=== PATIENT | female | born 1995 | race Caucasian/White ===

== ENCOUNTER 2017-08-06 15:53 | Emergency (ER) | payer BC ==
[2017-08-06 18:35] LABS: ABS Basophils 0.1 10^3/ul (0-0.2); ABS Eosinophils 0 10^3/ul (0-0.6); ABS Lymphocytes 2.2 10^3/ul (1.0-4.8); ABS Monocytes 0.3 10^3/ul (0-0.8); ABS Neutrophils 5.6 10^3/ul (1.5-7.7); ABS Nucleated RBC 0 10^3/ul; Eosinophil % 0.2 % (0-6); Hematocrit 40 % (35-47); Hemoglobin 13.7 g/dl (12.0-16.0); Lymphocyte % 26.8 % (25-47); Mean Corpuscular HGB Conc 35 g/dl (31-36); Mean Corpuscular Hemoglobin 30 pg (27-31); Mean Corpuscular Volume 88 fL (80-97); Mean Platelet Volume 9.6 um3 (7.4-10.4); Nucleated Red Blood Cells % 0; Platelet Count 265 10^3/ul (150-450); Red Blood Count 4.51 10^6/ul (4.00-5.40); Red Cell Distribution Width 15 % (10.5-15); White Blood Count 8.2 10^3/ul (3.5-10.8)
[2017-08-06 18:53] LABS: EGFR Non-African American 97.5 (>60)
[2017-08-06] MEDS ORDERED: Ondansetron ODT TAB* 4 MG PO ONE (19:02)
[2017-08-06] MEDS ORDERED: NS 0.9% 1000 ML* 1,000 ML IV ONE (19:02)
--- NOTE | 2017-08-06 19:09 | ED ---
Abdominal Pain/Female - HPI Summary HPI Summary: Complains of diffuse remittent abdominal pain worse on left side, constipation 1.5 weeks with one bowel movement on Wednesday, fatigue, nausea. Also complains of chronic productive cough 3 months. Has attempted 2 enemas with no improvement in symptoms. Last flatulence yesterday. Denies fever, sore throat, SOB, CP, V/D, urine symptoms, vaginal symptoms. History of Crohn's, with occasional hx of constipation starting this year. Denies history of intestinal obstruction. Abdominal/pelvic surgical history is none. Nonsmoker. - History of Current Complaint Chief Complaint: EDGeneral Stated Complaint: CONSTIPATION/NAUSEA Time Seen by Provider: 08/06/17 18:34 Hx Obtained From: Patient Onset/Duration: Gradual Onset Timing: Intermittent Episode Lasting Pain Intensity: 0 Location: Diffuse Radiates: No Character: Cramping Aggravating Factor(s): Nothing Alleviating Factor(s): Nothing Associated Signs and Symptoms: Positive: Constipation, Nausea Allergies/Adverse Reactions: Allergies Allergy/AdvReac Type Severity Reaction Status Date / Time No Known Allergies Allergy Unverified 08/06/17 16:03 PMH/Surg Hx/FS Hx/Imm Hx Endocrine/Hematology History: Denies: Hx Anticoagulant Therapy Cardiovascular History: Denies: Hx Cardiac Arrest Respiratory History: Denies: Hx Lung Cancer GI History: Reports: Hx Crohn's Disease History: Denies: Hx Acute Renal Failure Musculoskeletal History: Denies: Hx Gout Sensory History: Denies: Hx Cataracts EENT History: Denies: Hx Deafness Neurological History: Denies: Hx CVA Infectious Disease History: No Infectious Disease History: Denies: Traveled Outside the [place] in Last 30 Days - Social History Alcohol Use: Occasionally Substance Use Type: Reports: None Smoking Status (MU): Never Smoked Tobacco Review of Systems Constitutional: Negative Eyes: Negative ENT: Negative Cardiovascular: Negative Respiratory: Negative Positive: Abdominal Pain, Nausea Genitourinary: Negative Musculoskeletal: Negative Skin: Negative Neurological: Negative Psychological: Normal All Other Systems Reviewed And Are Negative: Yes Physical Exam - Summary Physical Exam Summary: Abdomen mildly tender diffusely with mildly increased pain to palpation in left upper quadrant and left lower quadrant. Triage Information Reviewed: Yes Vital Signs On Initial Exam: Initial Vitals Temp Pulse Resp BP Pulse Ox 98.2 F 84 16 112/74 100 08/06/17 15:59 08/06/17 15:59 08/06/17 15:59 08/06/17 15:59 08/06/17 15:59 Vital Signs Reviewed: Yes Appearance: Positive: Well-Appearing Skin: Positive: Warm Head/Face: Positive: Normal Head/Face Inspection Eyes: Positive: Normal Neck: Positive: Supple Respiratory/Lung Sounds: Positive: Clear to Auscultation Cardiovascular: Positive: Normal Abdomen Description: Positive: Other:. Negative: [place] Tenderness Musculoskeletal: Positive: Normal Neurological: Positive: Normal Psychiatric: Positive: Normal AVPU Assessment: Alert - Fiona Coma Scale Best Eye Response: 4 - Spontaneous Best Motor Response: 6 - Obeys Commands Best Verbal Response: 5 - Oriented Coma Scale Total: 15 Diagnostics - Vital Signs Vital Signs Temp Pulse Resp BP Pulse Ox 08/06/17 18:06 98 F 74 108/67 100 08/06/17 15:59 98.2 F 84 16 112/74 100 - Laboratory Lab Results: Lab Results 08/06/17 08/06/17 08/06/17 Range/Units 18:29 18:29 18:29 WBC 8.2 (3.5-10.8) 10^3/ul RBC 4.51 (4.00-5.40) 10^6/ul Hgb 13.7 (12.0-16.0) g/dl Hct 40 (35-47) % MCV 88 (80-97) fL MCH 30 (27-31) pg MCHC 35 (31-36) g/dl RDW 15 (10.5-15) % Plt Count 265 (150-450) 10^3/ul MPV 9.6 (7.4-10.4) um3 Neut % (Auto) 68.4 (38-83) % Lymph % (Auto) 26.8 (25-47) % Sargent % (Auto) 3.3 (0-7) % Eos % (Auto) 0.2 (0-6) % Baso % (Auto) 1.3 (0-2) % Absolute Neuts (auto) 5.6 (1.5-7.7) 10^3/ul Absolute Lymphs (auto) 2.2 (1.0-4.8) 10^3/ul Absolute Monos (auto) 0.3 (0-0.8) 10^3/ul Absolute Eos (auto) 0 (0-0.6) 10^3/ul Absolute Basos (auto) 0.1 (0-0.2) 10^3/ul Absolute Nucleated RBC 0 10^3/ul Nucleated RBC % 0 Sodium 136 (135-145) mmol/L Potassium 4.6 (3.5-5.0) mmol/L Chloride 101 (101-111) mmol/L Carbon Dioxide 26 (22-32) mmol/L Anion Gap 9 (2-11) mmol/L BUN 10 (6-24) mg/dL Creatinine 0.75 (0.51-0.95) mg/dL Est GFR ( Amer) 118.0 (>60) Est GFR (Non-Af Amer) 97.5 (>60) BUN/Creatinine Ratio 13.3 (8-20) Glucose 91 (70-100) mg/dL Lactic Acid 1.1 (0.5-2.0) mmol/L Calcium 10.3 (8.6-10.3) mg/dL Total Bilirubin 0.40 (0.2-1.0) mg/dL AST 26 (13-39) U/L ALT 19 (7-52) U/L Alkaline Phosphatase 49 (34-104) U/L C-Reactive Protein 11.82 H (<8.01) mg/L Total Protein 8.4 (6.4-8.9) g/dL Albumin 4.4 (3.2-5.2) g/dL Globulin 4.0 (2-4) g/dL Albumin/Globulin Ratio 1.1 (1-3) Lipase 51 (11.0-82.0) U/L Beta HCG, Quant < 0.60 mIU/mL Result Diagrams: 08/06/17 18:29 08/06/17 18:29 Lab Statement: Any lab studies that have been ordered have been reviewed, and results considered in the medical decision making process. - Radiology abdomen Xray Interpretation: Positive (See Comments) - Constipation Radiology Interpretation Completed By: Radiologist cxr Xray Interpretation: No Acute Changes Radiology Interpretation Completed By: Radiologist Abdominal Pain Fem Course/Dx - Course Course Of Treatment: Complains of diffuse remittent abdominal pain worse on left side, constipation 1.5 weeks with one bowel movement on Venancio, fatigue, nausea. Also complains of chronic productive cough 3 months. Has attempted 2 enemas with no improvement in symptoms. Last flatulence yesterday. Denies fever, sore throat, SOB, CP, V/D, urine symptoms, vaginal symptoms. History of Crohn's, with occasional hx of constipation starting this year. Denies history of intestinal obstruction. Abdominal/pelvic surgical history is none. Nonsmoker. Abdomen mildly tender diffusely with mildly increased pain to palpation in left upper quadrant and left lower quadrant. 2 soapsuds enemas mildly productive. Vital signs stable. Patient received additionla tx of mag citrate 150ml. Will be discharged home and told to return if unable to produce bowel movement tomorrow. Pt Agrees with plan. - Diagnoses Provider Diagnoses: Constipation Discharge - Sign-Out/Discharge Documenting (check all that apply): Discharge/Admit/Transfer - Discharge Plan Condition: Stable Disposition: HOME Patient Education Materials: Constipation (ED) Forms: *School Release Referrals: Deven Bailey MD [Primary Care Provider] - Maurice Moulton MD [Medical Doctor] - Additional Instructions: Follow-up with primary care. Return to the ED for any new or worsening symptoms - Billing Disposition and Condition Condition: STABLE Disposition: Home
--- NOTE | 2017-08-06 19:31 | RAD ---
INDICATION: Constipation COMPARISON: None TECHNIQUE: Supine and upright views of the abdomen were obtained. FINDINGS: There is a large amount of stool overlying the length of the colon without pathologic dilatation of the small or large bowel visible on radiography. No free intraperitoneal air is seen. No grossly abnormal or pathologic appearing calcifications are noted. Visualized bones are within normal limits for the patient's age. IMPRESSION: Large amount stool is overlying the not pathologically dilated colon consistent with constipation.
--- NOTE | 2017-08-06 19:32 | RAD ---
INDICATION: Cough x3 months COMPARISON: None TECHNIQUE: PA and lateral views of the chest were obtained. FINDINGS: The heart and mediastinum are normal in size and contour. The lungs are grossly clear. There is no evidence of large pleural effusion. Visualized bones are normal for the patient's age. There is no radiographic evidence of free air beneath the diaphragm IMPRESSION: No radiographic evidence of acute cardiopulmonary disease.
[2017-08-06] MEDS ORDERED: Magnesium CITRATE* 300 ML BTL PO ONE (23:42)
[2017-08-07 00:47] VITALS: BP 112/63
== END 2017-08-07 00:10 | disposition home or self-care (01) ==
LOC: ED 15:53
DX: K59.00 Constipation, unspecified (principal); K50.90 Crohn's disease, unspecified, without complications; R05 Cough
CPT/HCPCS: 36415; 71046; 74019; 80053; 83605; 83690; 84702; 85025; 86140; 96360; 99283; A9270-GY